=== PATIENT | male | born 1965 | race Caucasian/White ===

== ENCOUNTER 2023-04-22 11:44 | Emergency (ER) | payer OTHER, SELFPAY ==
[2023-04-22 11:44] VITALS: BP 152/97; PULSE 88; RESP 16; TEMP 36.6; O2SAT 95; BMI 31.8
--- NOTE | 2023-04-22 12:06 | EXP.UTC ---
Discharge Plan Disposition Patient Disposition: Home, Self-Care Condition: Good Prescriptions Prescriptions: New methylprednisolone 4 mg Tablets,Dose Pack 4 mg PO DIRECTED 6 Days Qty: 21 0RF Rx Instructions: Take 1 pack as directed for 6 days amoxicillin [amoxicillin] 875 mg tablet 875 mg PO Q12H Qty: 20 0RF benzonatate [benzonatate] 100 mg capsule 100 mg PO TIDP PRN (Reason: Cough) Qty: 30 0RF Referrals Follow up/Referrals: Provider,Referral, MD [Primary Care Provider] - See instructions Activity Restrictions/Add. Instructions Additional Instructions/Restrictions: Drink plenty of fluids. Take tylenol or ibuprofen for pain or fever. Take the medications as directed. Follow up with your regular doctor. GO TO THE ER FOR ANY WORSENING SYMPTOMS Don't start the oral steroids until tomorrow, since you had the shot here today. Clinical Impressions Clinical Impression: Pharyngitis Instructions Patient Instructions: DI for Pharyngitis/Tonsillopharyngitis -- Adult, Sore Throat, Dexamethasone Injection, Ceftriaxone Injection Discharge ED Provider: Desmond Huang [facility] General Stated complaint: sore throat Time Seen by Provider: 04/22/23 12:06 History of Present Illness Provider Complaint: He states that for the past 3 days he has had worsening sore throat, ear pain and malaise. Related Data Previous Rx's Medication Instructions Recorded amoxicillin 875 mg tablet 875 mg PO Q12H #20 tabs 04/22/23 benzonatate 100 mg capsule 100 mg PO TIDP PRN Cough #30 caps 04/22/23 methylprednisolone 4 mg tablets in 4 mg PO DIRECTED 6 days #21 tabs 04/22/23 a dose pack Allergies Allergy/AdvReac Type Severity Reaction Status Date / Time No Known Allergies Allergy Verified 04/22/23 12:10 [facility] Disclaimer: The information contained in this section may have been updated after the patient was seen, as this information can be updated by other users. Social History Smoking Status: Former smoker alcohol intake: never current occupational status: employed Travel in the last 8 weeks: None ROS Obtained: Yes All systems reviewed & no additional complaints except as documented Constitutional Constitutional: Reports chills and Reports fever(s) Eyes Eyes: Denies eye discharge ENT Ears, Nose, Mouth, and Throat: Reports as per HPI Cardiovascular Cardiovascular: Denies chest pain Respiratory Respiratory: Denies chest congestion and Reports cough Gastrointestinal Gastrointestingal: Reports nausea; Denies abdominal pain, constipation, cramping, diarrhea or vomiting Musculoskeletal Musculoskeletal: Denies arthralgias Integumentary/Breasts Skin/Breast: Denies rash Neurologic Neurologic: Denies paresthesias Physical Exam General General appearance: alert and in no apparent distress Head Head exam: atraumatic, normocephalic and normal inspection Eye Eye exam: Present normal appearance, PERRL and EOMI ENT ENT exam: Present mucous membranes moist and normal external ear exam Expanded ENT Exam TM/Canal exam: Bilateral TM: erythema and bulging Nose exam: Absent sinus tenderness Mouth exam: Present normal external inspection; Absent drooling Teeth exam: Present normal inspection Throat exam: Present tonsillar erythema, tonsillomegaly and tonsillar exudate Neck Neck exam: Present normal inspection, full ROM and trachea midline; Absent tenderness, meningismus or lymphadenopathy Chest Chest inspection: Present normal inspection and symmetric chest wall rise; Absent tenderness Respiratory Respiratory exam: Present normal lung sounds bilaterally; Absent respiratory distress, wheezes or stridor Cardiovascular Cardiovascular exam: Present regular rate and normal rhythm; Absent systolic murmur or diastolic murmur Abdominal Exam Abdominal exam: Present soft and normal bowel sounds; Absent distention, tenderness, guarding, rebound or rigidity Extremities Exam Extremities exam: P
[2023-04-22 12:19] LABS: UTC Strep Screen (Rapid) Negative (Negative)
[2023-04-22 12:59] VITALS: BP 152/99; PULSE 88; RESP 18; TEMP 36.6; O2SAT 95
== END 2023-04-22 13:00 | disposition home or self-care (01) ==
PROVIDERS: Emergency Provider Nurse Practitioner Family
DX: J02.9 Acute pharyngitis, unspecified (principal); H92.09 Otalgia, unspecified ear; R50.9 Fever, unspecified; R05.9 Cough, unspecified; R53.81 Other malaise; Z87.891 Personal history of nicotine dependence
CPT/HCPCS: 87880; 96372; 99204; 99212; G0463; J0696

== ENCOUNTER 2024-09-07 11:34 | Outpatient (CLI) | payer OTHER, SELFPAY ==
--- NOTE | 2024-09-07 | CA_ITS ---
APPROVED REPORT Exam: Exercise Treadmill Technologist: Luz Payan Ht: 5 ft 7 in Wt: 186 lbs BSA: 1.96 m2 HR: 60 bpm BP: 137/80 mmHg Stress Test Details Test: Exercise stress testing was performed using a modified Kamlesh protocol. HR Resting HR: 60 bpm Max Heart Rate (APMHR): 161 bpm Max HR Achieved: 133 bpm Target HR (85% APMHR): 137 bpm % of APMHR: 83 Recovery HR: 89 bpm BP Resting BP: 137.0/80.0 mmHg Max BP: 206.0/88.0 mmHg Recovery BP: 144.0/78.0 mmHg ECG Resting ECG: Sinus rhythm Stress ECG Conclusion Symptoms: Leg fatigue Arrhythmias/Ectopy: PVC ST-T Changes: Less than [address] depression. Conclusion: Normal EKG response to exercise Electronically signed by : Pita Royal MD 09/08/2024 23:56:30
== END 2024-09-07 23:59 | disposition home or self-care (01) ==
LOC: RT 11:35
PROVIDERS: Visit Provider Nurse Practitioner
DX: R07.89 Other chest pain (principal)
CPT/HCPCS: 93017; 93018